=== PATIENT | female | born 1985 | race Asian ===

== ENCOUNTER 2017-11-28 06:41 | Inpatient (IN) | payer OTHER ==
[2017-11-28] MEDS ORDERED: CARBOPROST TROME 250 MCG/ML IM PRN (08:18)
[2017-11-28] MEDS ORDERED: METHYLERGONOVINE 0.2MG/ML AMP IM PRN (08:18)
[2017-11-28] MEDS ORDERED: Ringers Lactate 1,000 ML IV PRN (08:18)
[2017-11-28 08:25] VITALS: BMI 34.0
[2017-11-28 08:37] LABS: RPR Titer ND
[2017-11-28 08:47] LABS: Absolute Lymphocytes (CBC) 1.8 K/uL (0.7-4.9); Absolute Monocytes 0.9 K/uL (0.1-1.3); Basophils % 0.6 % (0-1.3); Eosinophils % 0.8 % (0-4.4); Lymphocytes % 23.2 % (15.3-44.8); MCH 27.6 pg (27.0-35.0); MCV 84.5 fL (80-100); MPV 11.7 fL (7.6-11.3); Monocytes % 11.1 % (3.3-12.3); RBC Red Blood Cell Count 3.91 M/uL (3.86-4.86)
[2017-11-28] MEDS ORDERED: Ringers Lactate 1,000 ML IV SCH (09:00)
[2017-11-28] MEDS ORDERED: OXYTOCIN/LR 20 UNIT/1,000 ML BAG IV SCH (09:00)
[2017-11-28 09:01] LABS: Urine Appearance CLEAR; Urine Bilirubin NEGATIVE (NEG); Urine Blood NEGATIVE (NEG); Urine Color YELLOW; Urine Glucose NEGATIVE (NEG); Urine Protein NEGATIVE (NEG); Urine Specific Gravity 1.025 (1.005-1.030)
[2017-11-28 09:06] LABS: Urine Microscopic Reflex ORDER UMIC
[2017-11-28 09:59] LABS: Urine Bacteria <20 /HPF (<20); Urine Culture Reflex Order REFLEXED; Urine RBC <5 /HPF (NONE SEEN)
[2017-11-28] MEDS ORDERED: ROPIVACAINE HCL 0.2% 20ML AMP IV ONE (15:25)
[2017-11-28] MEDS ORDERED: ROPIVACAINE HCL 100 ML IV PRN (15:25)
[2017-11-28] MEDS ORDERED: FENTANYL CITR 100 MCG/2 ML IV ONE (15:25)
[2017-11-28] MEDS ORDERED: ACETAMINOPHEN 500 MG TAB PO ONE (21:44)
[2017-11-28] MEDS ORDERED: METHYLERGONOVINE 0.2MG/ML AMP IM ONE (22:31)
[2017-11-28] MEDS ORDERED: LIDOCAINE 2% INJ, 20 mL 0 ML ONE (22:31)
[2017-11-28] MEDS ORDERED: CARBOPROST TROME 250 MCG/ML IM ONE (22:31)
[2017-11-28 22:54] LABS: RPR (Rapid Plasma Reagin) NON-REACT (NON-REACT)
[2017-11-29] MEDS ORDERED: METOCLOPRAMIDE 10 MG/2mL INJ ONE (02:31)
[2017-11-29] MEDS ORDERED: NA CIT/CITRIC AC 30 ML ORAL UDC ONE (02:31)
[2017-11-29] MEDS ORDERED: FAMOTIDINE 20 MG/2 ML VIAL IV ONE (02:32)
[2017-11-29] MEDS ORDERED: CEFAZOLIN/SWI 2gm 2 GM/20 ML SYR ONE (02:32)
[2017-11-29] MEDS ORDERED: OXYTOCIN 10 UNIT/ML ML IV ONE (03:00)
[2017-11-29] MEDS ORDERED: MORPHINE SULFATE/PF 1 MG/ML (10 ML AMP) ONE (03:00)
[2017-11-29] MEDS ORDERED: LIDOCAINE 2% W/EPI 1:200,000 MPF 20 ML VIAL IM ONE (03:00)
--- NOTE | 2017-11-29 03:21 | HP ---
Date of Admission: 11/28/2017 History Of Present Illness: The patient is a 32-year-old, 1, para 0, who presents at 39 week s and 4 days gestation for elective induction of labor. The patient has obtained care with me in the office, beginning at 11 weeks gestation. She has been compliant with all visits. care has been uncomplicated except for anemia. She is Rh positive. Rubella immune. Hepat itis B negative. HIV negative. Group B strep swab was negative. She had noninvasive testi ng, which revealed low-risk male . Level 2 ultrasound was normal. She reports good move ments. No leakage of fluid. No vaginal bleeding. She has been having irregular contractions. Gynecologic History: Nonsignificant. Obstetrics History: She is primiparous. Past Medical History: Negative. Past Surgical History: Negative. Family History: Significant for diabetes, high cholesterol, hypertension, and thyroid disease. Social History: She is , here with her spouse. Denies tobacco, alcohol or drug use. Review of Systems: Negative. Physical Examination: Vital Signs: On admission, blood pressure 122/71, pulse 67, respirations 18, temperature 98.4. Pain scale 1/10. General: Resting comfortably in bed. No distress. Head and Neck: Normocephalic, atraumatic. Heart: Regular rate and rhythm. Respiratory: Symmetric, nonlabored breathing. Abdomen: Gravid. Extremities: Bilateral lower extremities +2 edema bilaterally. Vaginal Exam: Normal external female genitalia. Vagina is pink, moist, and normal rugae. Cervix is 2 cm dilated, 50% effaced, posterior position, -2 station. Rupture of membranes performed. Clear f luid noted. GBS negative. Assessment And Plan: Viviana is a 32-year-old 1, para 0, at 39 weeks and 4 days, who presen for elective induction of labor. Pitocin has been started. Rupture of membranes performed. She is GBS negative. Continuous maternal monitoring. Epidural at the patient's request. Anticipa te vaginal . /KRISSY Voice ID: [id number]
[2017-11-29] MEDS ORDERED: ONDANSETRON 4 MG (ODT) TAB PO PRN (03:48)
[2017-11-29] MEDS ORDERED: DOCUSATE NA/SENNA CONC 1 TAB PO PRN (03:48)
[2017-11-29] MEDS ORDERED: ACETAMINOPHEN 500 MG TAB PO PRN (03:48)
[2017-11-29] MEDS ORDERED: BISACODYL 10 MG RECTAL SUPP RECT PRN (03:48)
[2017-11-29] MEDS ORDERED: METHYLERGONOVINE 0.2 MG TAB PO PRN (03:48)
[2017-11-29] MEDS ORDERED: KETOROLAC 30 MG/ML INJ IV PRN (03:50)
--- NOTE | 2017-11-29 03:53 | P.OP ---
Security System Sales Consultant: Radha Linn Preoperative diagnosis: Term arrest of labor Postoperative diagnosis: As above Primary procedure: Primary low transverse section Anesthesia: Epidural Estimated blood loss: 800cc Specimen: cord blood, placenta Findings: viable male infant cephalic presentation, cord around body Operative Technique: The patient was taken to the operating room where her epidural anesthesia was reinforced. She was prepped and draped in the usual fashion for the procedure. After adequate epidural level was confirmed, the scalpel was utilized to make a transverse incision in the patient's lower abdominal wall. This incision was carried down to the level of the fascia, which was also transversely incised. After adequate hemostasis, the fascia was bluntly and sharply up from the underlying rectus muscle. The rectus muscle was in midline exposing the peritoneum. The peritoneum was carefully grasped and elevated with hemostats. It was entered in an up and down fashion with Metzenbaum scissors. The bladder blade was placed in the lower pole of the incision to protect the bladder. The uterus was palpated and inspected. A thin lower uterine segment was noted. The vertex presentation was confirmed. The scalp was then utilized to make a transverse or Sorensen incision in the lower uterine wall. Clear fluid was noted upon entering into the amniotic space. A term viable male was delivered up through the incision. He had spontaneous respirations. He was given bulb suctioning for clear fluid. His cord was clamped and cut and he was delivered off the field to nursery nurse. The baby boy was subsequently signed Apgars of 9 at one minute and 9 at five minutes. Her weight was found to be 7 pounds and 15 ounces. The placenta was manually extracted from the endometrial cavity. A ring clamp and two Allis clamps were placed around the margin of the uterine incision for hemostasis. The uterus was delivered up into the operative field. The endometrial cavity was swiped clean with a moist laparotomy pad. The uterine incision was then closed in a two-layered fashion with 0 Vicryl suture, the first layer interlocking and the second layer imbricating. Two additional stitches of 3-0 Vicryl suture were utilized for hemostasis. The uterine incision was noted to be hemostatic upon closure. The uterus was rotated forward , normal tubes and ovaries were noted on both sides. The uterus was then returned to its normal position of the abdominal cavity. The sponge and instrument count was performed for the first time at this point and found to be correct. The pelvis and anterior uterine space was then irrigated with saline solution. It was suctioned dry. A final check of the uterine incision confirmed hemostasis. The rectus muscle was stabilized across the midline with two simple stitches of 0 Vicryl suture. The subcutaneous tissue was then exposed, and the fascia closed with two running lengths of 0 Vicryl suture, beginning in lateral margins and overlapping the midline. The subcutaneous tissue was then irrigated and inspected. No active bleeding was noted. It was closed with interrupted 2-0 plain catgut suture. The skin was then approximated with 3.0 vicryl on a Rubén needle. The incision was cleansed and sterilely dressed. The patient was transferred to the recovery room in stable condition. The estimated blood loss through the procedure was 800 mL. The sponge and instrument counts were performed two more times during closure and found to be correct each time. Complications: None Drain(s): Urinary catheter Transferred to: Recovery Room Condition: Good
[2017-11-29 12:23] LABS: Absolute Lymphocytes (CBC) 1.7 K/uL (0.7-4.9); Absolute Monocytes 1.1 K/uL (0.1-1.3); Absolute Neutrophil 10.7 K/uL (1.8-8.0); Basophils % 0.2 % (0-1.3); Eosinophils % 0.1 % (0-4.4); Hematocrit 26.4 % (36.0-45.0); Lymphocytes % 12.7 % (15.3-44.8); MCH 27.8 pg (27.0-35.0); MCV 84.3 fL (80-100); MPV 10.2 fL (7.6-11.3); Monocytes % 7.8 % (3.3-12.3); RBC Red Blood Cell Count 3.13 M/uL (3.86-4.86)
[2017-11-29] MEDS: Oxycodone HCl/Acetaminophen 1 TAB TAB PO PRN ×2 (14:31→20:00)
[2017-11-29] MEDS ORDERED: FERROUS SULFATE 325 MG TAB PO SCH (21:00)
[2017-11-30] MEDS: IBUPROFEN 400 MG TAB PO PRN ×3 (02:00→16:47)
[2017-11-30] MEDS: Oxycodone HCl/Acetaminophen 1 TAB TAB PO PRN ×2 (02:00→15:07)
[2017-11-30 03:47] LABS: HBsAG Nonreactive (Nonreactive)
[2017-11-30] MEDS ORDERED: PRENATAL VITAMIN PO SCH (09:00)
[2017-11-30 13:03] VITALS: BP 136/75; TEMP 97.9
--- NOTE | 2017-11-30 23:42 | P.DS ---
Admission Date: 11/28/17 Discharge Date: 11/30/17 Disposition: DC HOME/HOME HEALTH CARE Discharge Condition: GOOD Brief History of Present Illness: see H&P Hospital Course: Patient was admitted for induction of labor. During process she had an arrest of labor and therefore needed to have a primary section. Patient did well following section. Pain was well managed. Patient is tolerating a regular diet. Ambulating well. Vital Signs/Physical Exam: Temp Pulse Resp BP Pulse Ox 97.9 F 72 18 136/75 11/30/17 12:00 11/30/17 12:00 11/30/17 12:00 11/30/17 12:00 General: Alert, In no apparent distress HEENT: Atraumatic Neck: Supple Respiratory: Normal air movement Cardiovascular: No edema Gastrointestinal: Soft and benign (incision clean, dry, intact) Musculoskeletal: No clubbing, No swelling Integumentary: No rashes, No breakdown Neurological: Normal gait Laboratory Data at Discharge: WBC 13.5 K/uL (4.3-10.9) H D 11/29/17 12:07 Hgb 8.7 g/dL (12.0-15.0) L 11/29/17 12:07 Hct 26.4 % (36.0-45.0) L D 11/29/17 12:07 Plt Count 133 K/uL (152-406) L 11/29/17 12:07 Home Medications: Iron Carb,Gl/FA/B12/C/Docusate [Ferralet 90 Tablet] 1 tab PO DAILY 11/29/17 Diet: Regular Activity: No lifting more than 10 lbs Followup: Tristen Sands DO [ACTIVE - CAN ADMIT] - 1-2 Weeks
== END 2017-11-30 16:00 | disposition home or self-care (01) | DRG 766 ==
LOC: 2ND-WC 06:41
PROVIDERS: ADMIT Student in an Organized Health Care Education/Training Program; ATTEND Student in an Organized Health Care Education/Training Program
PROC: 10D00Z1 Extraction of Products of Conception, Low, Open Approach (ICD-10-PCS; principal; 2017-11-28)
DX: O62.1 Secondary uterine inertia (principal); Z3A.39 39 weeks gestation of pregnancy; Z37.0 Single live birth
CPT/HCPCS: 36415; 81003; 81015; 85025; 86592; 86901; 87086; 87088; 87340; 88307; J0690; J2210; J2590; J2765; J2795; J3010

== ENCOUNTER 2018-06-24 21:33 | Emergency (ER) | payer OTHER ==
[2018-06-24 22:28] LABS: Urine Blood 2+ (NEG); Urine Glucose NEGATIVE (NEG); Urine Protein 1+ (NEG); Urine Specific Gravity >1.030 (1.005-1.030); Urine pH 5.5 (5.0-7.0)
[2018-06-24] MEDS ORDERED: FENTANYL CITR 100 MCG/2 ML ONE (22:50)
[2018-06-24] MEDS ORDERED: KETOROLAC 30 MG/ML INJ ONE (22:51)
[2018-06-24] MEDS ORDERED: NA CHLORIDE 0.9% 1,000 ML ONE (22:51)
[2018-06-24 22:52] LABS: Absolute Lymphocytes (CBC) 2.6 K/uL (0.7-4.9); Absolute Monocytes 0.8 K/uL (0.1-1.3); Absolute Neutrophil 6.8 K/uL (1.8-8.0); Basophils % 0.4 % (0-1.3); Eosinophils % 0.7 % (0-4.4); Hematocrit 34.1 % (36.0-45.0); MCH 24.7 pg (27.0-35.0); MPV 8.7 fL (7.6-11.3); Monocytes % 7.9 % (3.3-12.3); RBC Red Blood Cell Count 4.55 M/uL (3.86-4.86)
[2018-06-24 23:04] LABS: Potassium 3.6 mmol/L (3.5-5.1)
--- NOTE | 2018-06-25 01:41 | ER ---
Nurse's Notes [facility] Name: Viviana Whitt Age: 33 yrs Sex: Female : 1985 Arrival Date: 06/24/2018 Time: 21:35 Bed 14 Private MD: Diagnosis: Hydronephrosis with renal and ureteral calculous obstruction Presentation: 06/24 21:43 Presenting complaint: Patient states: left lower quadrant pain, intermittent since ak1 1800. Transition of care: patient was not received from another setting of care. Onset of symptoms was June 24, 2018. Risk Assessment: Do you want to hurt yourself or someone else? Patient reports no desire to harm self or others. Initial Sepsis Screen: Does the patient meet any 2 criteria? No. Patient's initial sepsis screen is negative. Does the patient have a suspected source of infection? No. Patient's initial sepsis screen is negative. Care prior to arrival: None. 21:43 Method Of Arrival: Ambulatory ak1 21:43 Acuity: DASH 3 ak1 Triage Assessment: 21:43 General: Appears uncomfortable, Behavior is calm, cooperative. Pain: Complains of pain ak1 in left lower quadrant. ADMISSION DISCHARGE RN: 21:43 LMP 05/25/2018 ak1 Historical: - Allergies: 21:43 No Known Allergies; ak1 - Home Meds: 21:43 None [Active]; ak1 - PMHx: 21:43 None; ak1 - PSHx: 21:43 ; ak1 - Immunization history:: Adult Immunizations unknown. - Social history:: Smoking status: Patient/guardian denies using tobacco. - Ebola Screening: : No symptoms or risks identified at this time. Screenin:44 Abuse screen: Denies threats or abuse. Denies injuries from another. Nutritional ak1 screening: No deficits noted. Tuberculosis screening: No symptoms or risk factors identified. Fall Risk None identified. Assessment: 21:50 Reassessment: Patient appears in no apparent distress at this time. Patient and/or cc3 family updated on plan of care and expected duration. Pain level reassessed. Patient is alert, oriented x 3, equal unlabored respirations, skin warm/dry/pink. 21:50 GI: Bowel sounds present X 4 quads. Abd is soft Abdomen is tender to palpation in left cc3 lower quadrant. 22:45 Reassessment: Patient appears in no apparent distress at this time. Patient and/or cc3 family updated on plan of care and expected duration. Pain level reassessed. Patient is alert, oriented x 3, equal unlabored respirations, skin warm/dry/pink. 23:30 Reassessment: Patient appears in no apparent distress at this time. Patient and/or cc3 family updated on plan of care and expected duration. Pain level reassessed. Patient is alert, oriented x 3, equal unlabored respirations, skin warm/dry/pink. Patient denies pain at this time. Patient states feeling better. 06/25 00:25 Reassessment: Patient appears in no apparent distress at this time. Patient and/or cc3 family updated on plan of care and expected duration. Pain level reassessed. Patient is alert, oriented x 3, equal unlabored respirations, skin warm/dry/pink. Patient states feeling better. Patient states symptoms have improved. 01:00 Reassessment: Patient appears in no apparent distress at this time. Patient and/or cc3 family updated on plan of care and expected duration. Pain level reassessed. Patient is alert, oriented x 3, equal unlabored respirations, skin warm/dry/pink. Patient came back from CT scan department, CT scan stone protocol done as ordered, awaiting result. 01:55 Reassessment: Patient appears in no apparent distress at this time. Patient and/or cc3 family updated on plan of care and expected duration. Pain level reassessed. Patient is alert, oriented x 3, equal unlabored respirations, skin warm/dry/pink. FRANCISCO Song discharged home the patient with prescription given. IV cannula removed and patient left ER vitally stable and ambulatory with her . Vital Signs: 06/24 21:43 BP 121 / 73; Pulse 74; Resp 20; Temp 98; Pulse Ox 96% on R/A; Weight 81.65 kg (R); ak1 Height 5 ft. 6 in. (167.64 cm) (R); Pain 02/03; 22:30 BP 134 / 84; Pulse 68; Resp 20 S; Pulse Ox 100% on R/A; cc3 23:30 BP 121 / 82; Pulse 66; Resp 19 S; Pulse Ox 97% on R/A; cc3 06/25 00:20 BP 110 / 71; Pulse 69; Resp 17 S; Pulse Ox 99% on R/A; cc3 01:30 BP 112 / 67; Pulse 68; Resp 17 S; Pulse Ox 99% on R/A; cc3 06/24 21:43 Body Mass Index 29.05 (81.65 kg, 167.64 cm) ak1 ED Course: 06/24 21:35 Patient arrived in ED. al2 21:43 Triage completed. ak1 21:43 Arm band placed on Patient placed in an exam room, on a stretcher, Patient notified of ak1 wait time. 21:44 Patient has correct armband on for positive identification. ak1 21:48 Shonna Nichols is Primary Nurse. cc3 21:50 Inserted saline lock: 20 gauge in right antecubital area, using aseptic technique. cc3 Blood collected. 21:53 Nohemi Medeiros FNP-C is PHCP. snw 21:53 Rogelio Reeder MD is Attending Physician. snw 22:43 Basic Metabolic Panel Sent. ds4 22:43 CBC with Diff Sent. ds4 06/25 00:[address] via wheelchair. kw1 00:53 CT Stone Protocol In Process Unspecified. EDMS 00:54 CT completed. Patient tolerated procedure well. Patient moved back from CT. kw1 01:39 Bailey Ojeda MD is Referral Physician. snw 01:55 No provider procedures requiring assistance completed. IV discontinued, intact, cc3 bleeding controlled, No redness/swelling at site. Pressure dressing applied. Administered Medications: 06/24 22:40 Drug: fentaNYL (PF) 50 mcg Route: IVP; Site: right antecubital; cc3 23:30 Follow up: Response: No adverse reaction; Pain is decreased cc3 22:45 Drug: TORadol 60 mg Route: IM; Site: right gluteus; cc3 23:30 Follow up: Response: No adverse reaction; Pain is decreased cc3 22:50 Drug: NS 0.9% 1000 ml Route: IV; Rate: 1 bolus; Site: right antecubital; cc3 06/25 00:00 Follow up: Response: No adverse reaction; IV Status: Completed infusion; IV Intake: cc3 1000ml 01:48 Drug: Rocephin 1 grams {Note: given IVP per pharmacy protocol..} Route: IV; Rate: jb4 calculated rate; Site: right antecubital; 01:48 Follow up: Response: No adverse reaction; IV Status: Completed infusion jb4 01:48 Drug: Flomax 0.4 mg Route: PO; jb4 01:49 Follow up: Response: No adverse reaction jb4 Intake: 00:00 IV: 1000ml; Total: 1000ml. cc3 Outcome: 01:40 Discharge ordered by MD. au 01:55 Discharged to home ambulatory, with family. cc3 01:55 Condition: stable 01:55 Discharge instructions given to patient, family, Instructed on discharge instructions, follow up and referral plans. medication usage, Demonstrated understanding of instructions, follow-up care, medications, Prescriptions given X 4. 01:58 Patient left the ED. cc3 Signatures: Dispatcher [employer] EDMS Nohemi Medeiros, JULIO-C PAVING FOREMAN-Isaak Simon ds4 Stormy Serrano RN RN ak1 Kendrick Pierre RN RN jb4 Haydee Miller Angelica al2 Cordel, Charlene cc3 Corrections: (The following items were deleted from the chart) 06/24 21:46 21:43 Pulse 74bpm; Resp 20bpm; Pulse Ox 96% RA; Temp 98F; 81.65 kg Reported; Height 5 ak1 ft. 6 in. Reported; BMI: 29.0; Pain 6/10; ak1 06/25 00:25 06/24 23:30 Reassessment: Patient appears in no apparent distress at this time. Patient cc3 and/or family updated on plan of care and expected duration. Pain level reassessed. Patient is alert, oriented x 3, equal unlabored respirations, skin warm/dry/pink. cc3 06/25 02:59 01:00 Reassessment: Patient appears in no apparent distress at this time. Patient cc3 and/or family updated on plan of care and expected duration. Pain level reassessed. Patient is alert, oriented x 3, equal unlabored respirations, skin warm/dry/pink. Patient came back from CT scan department. cc3
--- NOTE | 2018-06-25 01:41 | EDPHYS ---
Physician Documentation [facility] Name: Viviana Whitt Age: 33 yrs Sex: Female : 1985 Arrival Date: 06/24/2018 Time: 21:35 Bed 14 Private MD: ED Physician Rogelio Reeder HPI: 06/24 23:38 This 33 yrs old Female presents to ER via Ambulatory with complaints of Abdominal snw Pain. 23:38 The patient presents with abdominal pain in the left upper quadrant. Onset: The snw symptoms/episode began/occurred suddenly, and became worse and became persistent. The symptoms do not radiate. Associated signs and symptoms: none. The symptoms are described as crampy, shooting. Modifying factors: The symptoms are alleviated by nothing, the symptoms are aggravated by nothing. Severity of pain: At its worst the pain was incapacitating. The patient has not experienced similar symptoms in the past. The patient has not recently seen a physician. [facility]: 21:43 LMP 05/25/2018 ak1 Historical: - Allergies: 21:43 No Known Allergies; ak1 - Home Meds: 21:43 None [Active]; ak1 - PMHx: 21:43 None; ak1 - PSHx: 21:43 ; ak1 - Immunization history:: Adult Immunizations unknown. - Social history:: Smoking status: Patient/guardian denies using tobacco. - Ebola Screening: : No symptoms or risks identified at this time. ROS: 23:37 Constitutional: Negative for fever, chills, and weight loss, Eyes: Negative for injury, snw pain, redness, and discharge, ENT: Negative for injury, pain, and discharge, Neck: Negative for injury, pain, and swelling, Cardiovascular: Negative for chest pain, palpitations, and edema, Respiratory: Negative for shortness of breath, cough, wheezing, and pleuritic chest pain, Abdomen/GI: Positive for abdominal pain that started suddenly at 1800, denies nausea, vomiting, diarrhea, and constipation, Back: Negative for injury and pain, MS/Extremity: Negative for injury and deformity, Skin: Negative for injury, rash, and discoloration, Neuro: Negative for headache, weakness, numbness, tingling, and seizure. Exam: 23:34 Constitutional: This is a well developed, well nourished patient who is awake, alert, snw and in no acute distress. Head/Face: Normocephalic, atraumatic. Eyes: Pupils equal round and reactive to light, extra-ocular motions intact. Lids and lashes normal. Conjunctiva and sclera are non-icteric and not injected. Cornea within normal limits. Periorbital areas with no swelling, redness, or edema. ENT: Nares patent. No nasal discharge, no septal abnormalities noted. Tympanic membranes are normal and external auditory canals are clear. Oropharynx with no redness, swelling, or masses, exudates, or evidence of obstruction, uvula midline. Mucous membranes moist. Neck: Trachea midline, no thyromegaly or masses palpated, and no cervical lymphadenopathy. Supple, full range of motion without nuchal rigidity, or vertebral point tenderness. No Meningismus. Chest/axilla: Normal chest wall appearance and motion. Nontender with no deformity. No lesions are appreciated. Cardiovascular: Regular rate and rhythm with a normal S1 and S2. No gallops, murmurs, or rubs. Normal PMI, no JVD. No pulse deficits. Respiratory: Lungs have equal breath sounds bilaterally, clear to auscultation and percussion. No rales, rhonchi or wheezes noted. No increased work of breathing, no retractions or nasal flaring. Abdomen/GI: Soft, severely tender to left upper quad with normal bowel sounds. No distension or tympany. No guarding or rebound. No evidence of tenderness throughout. Back: No spinal tenderness. No costovertebral tenderness. Full range of motion. Vital Signs: 21:43 BP 121 / 73; Pulse 74; Resp 20; Temp 98; Pulse Ox 96% on R/A; Weight 81.65 kg (R); ak1 Height 5 ft. 6 in. (167.64 cm) (R); Pain 6/10; 22:30 BP 134 / 84; Pulse 68; Resp 20 S; Pulse Ox 100% on R/A; cc3 23:30 BP 121 / 82; Pulse 66; Resp 19 S; Pulse Ox 97% on R/A; cc3 1030 00:20 BP 110 / 71; Pulse 69; Resp 17 S; Pulse Ox 99% on R/A; cc3 01:30 BP 112 / 67; Pulse 68; Resp 17 S; Pulse Ox 99% on R/A; cc3 06/24 21:43 Body Mass Index 29.05 (81.65 kg, 167.64 cm) ak1 MDM: 06/24 22:24 Patient medically screened. snw 06/25 01:42 Data reviewed: vital signs, nurses notes. Data interpreted: Pulse oximetry: on room air snw is 99 %. Interpretation: normal. Counseling: I had a detailed discussion with the patient and/or guardian regarding: the historical points, exam findings, and any diagnostic results supporting the discharge/admit diagnosis, lab results, radiology results, the need for outpatient follow up, to return to the emergency department if symptoms worsen or persist or if there are any questions or concerns that arise at home. Special discussion: Based on the patient's Hx, exam, and Dx evaluation, there is no indication for emergent surgery or inpatient Tx. It is understood by the patient/guardian that if the Sx's persist or worsen they need to return immediately for re-evaluation. Based on the history and exam findings, there is no indication for further emergent testing or inpatient evaluation. I discussed with the patient/guardian the need to see the primary care provider for further evaluation of the symptoms. I discussed with the patient/guardian the need to see the urologist for further evaluation of the symptoms. 06/24 22:06 Order name: Urine Dipstick--Ancillary (enter results); Complete Time: 22:32 ms 06/24 22:06 Order name: Urine --Ancillary (enter results); Complete Time: 22:32 ms 06/24 22:33 Order name: Basic Metabolic Panel; Complete Time: 23:10 snw 06/24 22:33 Order name: CBC with Diff; Complete Time: 23:01 snw 06/25 00:35 Order name: CT Stone Protocol snw 06/24 22:33 Order name: Labs collected and sent; Complete Time: 22:43 snw Administered Medications: 06/24 22:40 Drug: fentaNYL (PF) 50 mcg Route: IVP; Site: right antecubital; cc3 23:30 Follow up: Response: No adverse reaction; Pain is decreased cc3 22:45 Drug: TORadol 60 mg Route: IM; Site: right gluteus; cc3 23:30 Follow up: Response: No adverse reaction; Pain is decreased cc3 22:50 Drug: NS 0.9% 1000 ml Route: IV; Rate: 1 bolus; Site: right antecubital; cc3 06/25 00:00 Follow up: Response: No adverse reaction; IV Status: Completed infusion; IV Intake: cc3 1000ml 01:48 Drug: Rocephin 1 grams {Note: given IVP per pharmacy protocol..} Route: IV; Rate: jb4 calculated rate; Site: right antecubital; 01:48 Follow up: Response: No adverse reaction; IV Status: Completed infusion jb4 01:48 Drug: Flomax 0.4 mg Route: PO; jb4 01:49 Follow up: Response: No adverse reaction jb4 Disposition: 05:34 Co-signature as Attending Physician, Rogelio Reeder MD. major Disposition: 06/25/18 01:40 Discharged to Home. Impression: Hydronephrosis with renal and ureteral calculous obstruction. - Condition is Stable. - Discharge Instructions: Kidney Stones, Hydronephrosis, Dietary Guidelines to Help Prevent Kidney Stones, Rehydration, Adult. - Prescriptions for Zofran 4 mg Oral Tablet - take 1 tablet by ORAL route every 12 hours As needed; 20 tablet. Flomax 0.4 mg Oral Capsule, Sust. Release 24 hr - take 1 capsule by ORAL route once daily 1/2 hour following the same meal each day; 30 capsule. Diclofenac Sodium 75 mg Oral Tablet Sustained Release - take 1 tablet by ORAL route 2 times per day; 30 tablet. Macrobid 100 mg Oral Capsule - take 1 capsule by ORAL route every 12 hours for 7 days; 14 capsule. - Work release form, Family Work Release, Medication Reconciliation Form, Thank You Letter, Antibiotic Education, Prescription Opioid Use form. - Follow up: Private Physician; When: 2 - 3 days; Reason: Recheck today's complaints, Continuance of care, Re-evaluation by your physician. Follow up: Emergency Department; When: As needed; Reason: Worsening of condition. Follow up: Bailey Ojeda MD; When: As needed; Reason: Recheck today's complaints, Continuance of care. - Problem is new. - Symptoms are resolved. Signatures: Dispatcher [employer] Rogelio Gonzales MD MD pkl Nohemi Medeiros, REGISTERED PRIVATE DUTY NURSE-C REGISTERED PRIVATE DUTY NURSE-Csnw Stormy Serrano RN RN ak1 Kendrick Pierre RN RN jb4 Shonna Nichols cc3 Corrections: (The following items were deleted from the chart) 01:58 01:40 06/25/2018 01:40 Discharged to Home. Impression: Hydronephrosis with renal and cc3 ureteral calculous obstruction. Condition is Stable. Forms are Medication Reconciliation Form, Thank You Letter, Antibiotic Education, Prescription Opioid Use. Follow up: Private Physician; When: 2 - 3 days; Reason: Recheck today's complaints, Continuance of care, Re-evaluation by your physician. Follow up: Emergency Department; When: As needed; Reason: Worsening of condition. Follow up: Bailey Ojeda; When: As needed; Reason: Recheck today's complaints, Continuance of care. Problem is new. Symptoms are resolved. snw
[2018-06-25] MEDS ORDERED: TAMSULOSIN 0.4 MG SR CAP ONE (01:46)
[2018-06-25] MEDS ORDERED: CEFTRIAXONE/SWI 1gm 1 GM/10 ML SYR ONE (01:47)
[2018-06-25 02:03] VITALS: TEMP 98
[2018-06-25 02:06] VITALS: BP 110/71; O2SAT 99
--- NOTE | 2018-06-25 08:43 | RAD REPORT ---
EXAM DESCRIPTION: CT - Stone Protocol - 06/25/2018 1:37 am CLINICAL HISTORY: Abdominal pain. Left flank pain COMPARISON: None. TECHNIQUE: Computed axial tomography of the abdomen pelvis was obtained without oral or IV contrast. Lack of IV and oral contrast limits evaluation of solid organs, bowel, and vessels. Coronal reformat juan images were obtained and reviewed. Prelim report was generated virtual radiologic and prior to di ctation All CT scans are performed using dose optimization technique as appropriate and may include automated exposure control or mA/KV adjustment according to patient size. FINDINGS: A renal calculus is not seen. An ureteral calculus is not noted. A bladder calculus is not present. Mild left hydronephrosis is present. Left perirenal stranding is present. Left ureter is di lated. 4 millimeter calculus is present within the distal left ureter near the UVJ. The liver, spleen, pancreas and adrenals appear grossly normal There is no evidence of diverticulitis. The appendix appears normal Tiny umbilical hernia is noted. IMPRESSION: 4 millimeter calculus distal left ureter resulting in mild left hydronephrosis
== END 2018-06-25 01:58 | disposition home or self-care (01) ==
LOC: ER 21:33
DX: N13.2 Hydronephrosis with renal and ureteral calculous obstruction (principal)
CPT/HCPCS: 36415; 74176; 76377; 80048; 81003; 81025; 85025; 96361; 96372; 96374; 96375; 99284; J0696; J3010; J7030

== ENCOUNTER 2019-11-04 04:44 | Inpatient (IN) | payer OTHER ==
--- NOTE | 2019-11-03 15:32 | PREOPHP ---
Date of Admission: 11/04/2019 This 34-year-old 2, para 1, at 39 weeks on Sunday for repeat section. Infection, b lood loss, anesthetic complications, injury to bladder, bowel, ureter, postoperative complications, c lots in legs, pneumonia discussed. Patient knows fully well this does not constitute all the possibl e problems that could occur during or following surgery. Family History: Noncontributory. Medications: Patient has been on vitamins. Otherwise nothing. Social History: She does not smoke. Physical Examination: HEENT: Clear. Pupils are equal, round, and reactive to light and accommodation. Conjunctivae well perfused. No oral, lingual, or buccal lesions. Chest and Lungs: Clear. Heart: Without murmurs, thrills, heaves, or rubs. Breasts: Without masses on previous visits. Extremities: Clear. Baby is in the 8-pound range or more. Cervix is 1 possibly 1.5 cm, 40 to 50% effaced. Baby is still floating but well applied. We will proceed with section on Sunday. She will do movement counts between now and then if the baby does not move properly, if she goes into labor she will go [place] and Delivery sooner than Sunday. Full discussion. DARRIN/KRISSY Voice ID: [id number]
[2019-11-03 18:16] LABS: Protime INR 1.04
[2019-11-03 18:48] LABS: Absolute Lymphocytes (CBC) 1.8 K/uL (0.7-4.9); Basophils % 0.4 % (0-1.3); Hematocrit 33.6 % (36.0-45.0); Lymphocytes % 20.8 % (15.3-44.8); MPV 9.7 fL (7.6-11.3); RBC Red Blood Cell Count 3.99 M/uL (3.86-4.86)
[2019-11-03 19:09] LABS: Urine Appearance CLEAR; Urine Blood NEGATIVE (NEG); Urine Color DK YELLOW; Urine Glucose NEGATIVE (NEG); Urine Protein TRACE (NEG); Urine pH 6.5 (5.0-7.0)
[2019-11-03 20:27] LABS: Urine Bilirubin 1+ (NEG)
[2019-11-03 20:35] LABS: Urine Bacteria 20-50 /HPF (<20); Urine Mucus 1+ /HPF (NONE SEEN); Urine RBC <5 /HPF (NONE SEEN)
[2019-11-04 03:15] LABS: RPR (Rapid Plasma Reagin) NON-REACT (NON-REACT)
[~2019-11-04 04:44] MED LIST: CEFAZOLIN 2 GM in NA CHLORIDE 0.9% 100 ML IVPB SCH
[2019-11-04] MEDS ORDERED: Ringers Lactate 1,000 ML IV PRN (05:00)
[2019-11-04] MEDS ORDERED: Ringers Lactate 1,000 ML IV SCH (05:00)
[2019-11-04 05:37] VITALS: BMI 34.6
[2019-11-04] MEDS ORDERED: METOCLOPRAMIDE 10 MG/2mL INJ IV ONE (06:00)
[2019-11-04] MEDS ORDERED: FAMOTIDINE 20 MG/2 ML VIAL IV ONE (06:00)
[2019-11-04] MEDS ORDERED: NA CIT/CITRIC AC 30 ML ORAL UDC PO ONE (06:00)
[2019-11-04] MEDS ORDERED: METHYLERGONOVINE 0.2MG/ML AMP IM PRN (06:31)
[2019-11-04] MEDS ORDERED: CARBOPROST TROME 250 MCG/ML IM ONE (07:00)
[2019-11-04] MEDS ORDERED: OXYTOCIN 10 UNIT/ML ML IV ONE (07:11)
[2019-11-04] MEDS ORDERED: LIDOCAINE 1% MPF 5 ML VIAL ONE (07:11)
[2019-11-04] MEDS ORDERED: BUPIVACAINE 0.75% (PF) 2 ML SP ONE (07:13)
[2019-11-04] MEDS ORDERED: MORPHINE SULFATE/PF 1 MG/ML (10 ML AMP) ONE (07:14)
[2019-11-04] MEDS ORDERED: CEFAZOLIN/SWI 2gm 2 GM/20 ML SYR IVP SCH (07:30)
[2019-11-04] MEDS ORDERED: EPHEDRINE SULF 50 MG/ML VIAL ONE (07:31)
[2019-11-04] MEDS ORDERED: KETOROLAC 30 MG/ML INJ IV PRN (08:21)
[2019-11-04] MEDS ORDERED: ONDANSETRON 4 MG (ODT) TAB PO PRN (08:21)
[2019-11-04] MEDS ORDERED: KETOROLAC 30 MG/ML INJ IM PRN (08:21)
[2019-11-04] MEDS ORDERED: ONDANSETRON 4 MG/2 ML VIAL IV PRN (08:21)
[2019-11-04] MEDS ORDERED: BISACODYL 10 MG RECTAL SUPP RECT PRN (08:21)
[2019-11-04] MEDS ORDERED: ACETAMINOPHEN 500 MG TAB PO PRN ×2 (08:21)
[2019-11-04] MEDS ORDERED: Ringers Lactate 1,000 ML IV ONE (08:40)
[2019-11-04] MEDS ORDERED: CEFAZOLIN/SWI 1gm 1 GM/10 ML SYR IV SCH (08:45)
[2019-11-04] MEDS: DIPHENHYDRAMINE 25 MG TAB/CAP PO PRN ×2 (10:00→20:10)
[2019-11-04] MEDS: D5LR 1,000 ML with OXYTOCIN 20 UNIT IV SCH ×2 (10:51)
--- NOTE | 2019-11-04 15:24 | OP ---
Surgeon: Migel Jean MD This is a 34-year-old 2, para 2, for repeat . Full preoperative counseling concerning procedure and possible complications, including infection, blood loss, anesthetic complications, injury to bladder, bowel, ureter, postoperative complications, clots in legs, and pneumonia. The patient knows fully well this does not constitute all the possible problems that could occur during or following surgery. Spinal block anesthesia Dr. Jang and group, Dr. Lux for anesthesiologists' assistant surgery. After prepping and draping, time- out was performed. A Pfannenstiel incision was created over the previous incision site. The incision was carried to the fascia. The fascia was incised and incision carried transversely bilaterally. Anterior and posterior fascial planes were developed with both blunt and sharp dissection. The rectus muscles were at the apex and peritoneum was entered at that point. Low transverse bladder flap was developed. Low transverse uterine incision created and 8 pounds, 3 ounce male infant was delivered without difficulties. Apgars 9 and 9. Cord blood specimen was obtained. Placenta was removed manually. Uterus cleared of clot and blood and exteriorized. Mild hypotonus noted. 0.2 mg of Methergine as well as IV drip Pitocin and massage. Estimated blood loss during the procedure 1000 cc. Cervical os dilated with ring clamp. Uterus closed with a running locked stitch of 1 chromic followed by 2 [id number] stitches in the right angle for complete hemostasis. Uterus was replaced in the peritoneal cavity. After gutters cleared of clot and blood, reinspection of suture line showed no further bleeding. The rectus muscles were approximated with 3 [id number] stitches of 0 Vicryl. There was noted to be bleeding from the right angle of the incision line, two figure of eight chromic sutures placed in that point with good hemostasis noted. The fascia was closed with PDS, running from either angle to the midline. Subcutaneous tissue closed with 2-0 plain. Absorbable rowdy placed and metal rowdy afterwards. Patient been given 2 g of Ancef prior to the procedure. She was transferred to the recovery room in good condition. Sandbag ordered for 2 hours for compression as there was oozing from the incision line secondary to scar tissue. Final Diagnoses: Term intrauterine approximately 39 weeks. Repeat section. Spinal block anesthesia. Mild uterine hypotonus. NBC/MODL Voice ID: [id number] Report ID: [id number]
[2019-11-04] MEDS: Oxycodone HCl/Acetaminophen 1 TAB TAB PO PRN (15:55)
[2019-11-04] MEDS ORDERED: CEFAZOLIN/SWI 2gm 2 GM/20 ML SYR IV ONE (16:00)
[2019-11-04] MEDS: OXYTOCIN/LR 20 UNIT/1,000 ML BAG IV SCH (18:35)
[2019-11-05] MEDS: Oxycodone HCl/Acetaminophen 1 TAB TAB PO PRN (03:44)
[2019-11-05] MEDS ORDERED: Ringers Lactate 1,000 ML IV ONE (07:59)
[2019-11-05 08:13] LABS: Urine Appearance CLEAR; Urine Bilirubin NEGATIVE (NEG); Urine Blood NEGATIVE (NEG); Urine Color YELLOW; Urine Glucose NEGATIVE (NEG); Urine Protein NEGATIVE (NEG); Urine Specific Gravity <=1.005 (1.005-1.030); Urine Urobilinogen 0.2 mg/dL (0.2-1.0)
--- NOTE | 2019-11-05 08:14 | PN ---
Postoperatively, doing quite well. H and H with the expected change. Lochia is normal. We will dis continue Herrera and IV this morning. She has already been ambulating quite well. Had a little prurit us secondary to the spinal block but that is now resolving. Full postop talk given. She has no devan r complaints or problems this morning. Baby has eaten and had defecated and urinated quite well. [place] has had her Tdap immunization. She has no spinal block headaches. If all goes well, we will send her home tomorrow morning. DARRIN/KRISSY Voice ID: [id number] Report ID: [id number]
[2019-11-05] MEDS ORDERED: MAGNESIUM HYDROXIDE 8% 30 ML PO PRN (08:21)
[2019-11-05 08:39] LABS: Urine RBC <5 /HPF (NONE SEEN)
[2019-11-05 08:40] LABS: Urine Bacteria <20 /HPF (<20)
[2019-11-05] MEDS: IBUPROFEN 600 MG TAB PO PRN (14:20)
[2019-11-05] MEDS: OXYTOCIN/LR 20 UNIT/1,000 ML BAG IV SCH (17:00)
[2019-11-05] MEDS: D5LR 1,000 ML with OXYTOCIN 20 UNIT IV SCH ×2 (17:04)
[2019-11-06] MEDS: IBUPROFEN 600 MG TAB PO PRN (10:29)
[2019-11-06 13:24] VITALS: BP 110/72; TEMP 98.2
--- NOTE | 2019-11-06 21:29 | DS ---
Date of Discharge: 11/06/2019 History: A 34-year-old 2, para 1, 39 weeks 1 day, repeat section, delivery of an 8- pound 3-ounce male infant, Apgars 9 and 9. Spinal block anesthesia. Mild uterine hypertonus, 1000 m L blood loss or less. Ancef pre and postop for prophylaxis. Postoperatively, afebrile, ambulating, and voiding. Lochia is normal. She will be dismissed this morning to report back to my office next week for followup, to report any temperature elevation of 100 degrees or greater, severe pain, heavy bleeding, or any other type of abnormality. She requests no analgesics on dismissal. She has had he r Tdap immunization. Rh positive, immune to Rubella. Urinalysis done at the time of discontinuation of Herrera catheter was normal and therefore no infection suspected. Final Diagnoses: Term intrauterine 39 weeks 1 day, repeat section. Spinal block anesthesia. Mild uterine hypotonus. DARRIN/KRISSY Voice ID: [id number] Report ID: [id number]
[2019-11-07 19:57] LABS: HBsAG Nonreactive (Nonreactive)
== END 2019-11-06 12:50 | disposition home or self-care (01) | DRG 788 ==
LOC: 2ND-WC 04:44
PROVIDERS: ADMIT Specialist; ATTEND Specialist
PROC: 3E0R3BZ Introduction of Anesthetic Agent into Spinal Canal, Percutaneous Approach (ICD-10-PCS; 2019-11-04)
PROC: 10D00Z1 Extraction of Products of Conception, Low, Open Approach (ICD-10-PCS; principal; 2019-11-04 07:30)
DX: O34.211 Maternal care for low transverse scar from previous cesarean delivery (principal); O62.2 Other uterine inertia; Z3A.39 39 weeks gestation of pregnancy; Z37.0 Single live birth
CPT/HCPCS: 36415; 81001; 85014; 85025; 85610; 85730; 86592; 86850; 86900; 86901; 87086; 87088; 87340; 88307; J0690; J2590; J2765; J7120; J7121